=== PATIENT | male | born 1985 | race Caucasian/White ===

== ENCOUNTER 2023-07-07 08:46 | Emergency (ER) | payer SELFPAY ==
[~2023-07-07] VITALS: Ht 180.3 cm; Wt 80.0 kg
[2023-07-07 09:48] VITALS: BP 130/82; PULSE 69; RESP 18; TEMP 97.9; O2SAT 95
[2023-07-07] MEDS ORDERED: PENICILLIN V POTASSIUM 250 MG TAB PO ONE (10:00)
[2023-07-07] MEDS ORDERED: IBUPROFEN 600 MG TAB PO ONE (10:00)
[2023-07-07] MEDS ORDERED: cefTRIAXone SOD 1,000 MG VL IM ONE (10:30)
== END 2023-07-07 10:25 | disposition home or self-care (01) ==
LOC: EDBD 08:46 → ER 08:46
DX: K05.10 Chronic gingivitis, plaque induced (principal)
CPT/HCPCS: 96372; 99283; J0696